=== PATIENT | female | born 1995 | race American Indian/Alaskan Native ===

== ENCOUNTER 2017-10-02 12:23 | Emergency (ER) | payer SELFPAY ==
[2017-10-02 13:00] LABS: Basophils % (Auto) 0.4 % (0.0-1.8); Eosinophils % (Auto) 4.8 % (0.0-4.3); Hematocrit 36.1 % (30.3-42.9); Mean Corpuscular HGB Conc 33 % (30-34); Mean Corpuscular Hemoglobin 29 pg (28-32); Mean Corpuscular Volume 86 fl (79-97); Platelet Count 170 K/mm3 (140-440); Red Blood Count 4.19 M/mm3 (3.65-5.03); Red Cell Distribution Width 13.6 % (13.2-15.2)
[2017-10-02 13:18] LABS: Alanine Aminotransferase 8 units/L (7-56); Albumin 3.8 g/dL (3.9-5); Albumin/Globulin Ratio 1.2 %; Alkaline Phosphatase 38 units/L (35-129); Anion Gap 17 mmol/L; BUN/Creatinine Ratio 15; Blood Urea Nitrogen 6 mg/dL (7-17); Calcium 8.7 mg/dL (8.4-10.2); Carbon Dioxide 22 mmol/L (22-30); Chloride 101.9 mmol/L (98-107); Glucose 93 mg/dL (65-100); Lipase 39 units/L (13-60); Potassium 4.2 mmol/L (3.6-5.0); Sodium 137 mmol/L (137-145); Total Protein 6.9 g/dL (6.3-8.2)
[2017-10-02 13:41] LABS: Mucus,Urine FEW /HPF
[2017-10-02 14:10] LABS: Bilirubin,Urine Negative (Negative); Blood,Urine Small (Negative); Ketones,Urine Negative (Negative)
[2017-10-02 14:11] LABS: Leukocyte Esterase,Urine Negative (Negative); Nitrite,Urine Negative (Negative); Urobilinogen,Urine < 2.0 mg/dL (<2.0)
--- NOTE | 2017-10-02 14:55 | Ultrasound Report ---
OB ultrasound: Pelvic pain. Transabdominal imaging demonstrates that the uterus measures approximately 6.6 x 8.4 x 12 cm. There is a gallegos intrauterine gestation with a BPD of 1.97 cm equivalent to a 13 week one day gestation. The femur length is 7 mm equivalent to a 12 week one day gestation. There is heart motion 154 beats per minute. No intrauterine complication identified. The right ovary measures 3.6 cm and is echogenically unremarkable. The left ovary measures 3.5 cm and contains a 1.8 cm cyst. No free fluid. Impressions: Viable gallegos IUP. No complication identified.
--- NOTE | 2017-10-02 21:51 | Emergency Department Report ---
HPI - General Chief Complaint: Abdominal Pain Time Seen by Provider: 10/02/17 21:40 - HPI HPI: This is a 21 year-old female presents to the emergency department with complaint of some lower abdominal discomfort and some dizziness that occurred earlier today while at work. The patient is and with this she is with 2 previous abortions. She is on vitamins. Her COOKEE is a Dr. Davis and she has an appointment with them on Thursday. She did not take anything for her symptoms prior to presentation. No recent travel or sick contacts at home. She denies any other past medical history. She currently says she is just hungry. She denies any vaginal bleeding, vaginal discharge, fever, nausea, vomiting. ED Past Medical Hx - Past Medical History Previous Medical History?: No - Surgical History Past Surgical History?: No Additional Surgical History: x3 - Social History Smoking Status: Never Smoker Substance Use Type: None ED Review of Systems ROS: Stated complaint: ABDOMINAL PAIN Other details as noted in HPI Comment: All other systems reviewed and negative Constitutional: denies: chills, fever Eyes: denies: eye pain, eye discharge, vision change ENT: denies: ear pain, throat pain Respiratory: denies: cough, shortness of breath, wheezing Cardiovascular: denies: chest pain, palpitations Gastrointestinal: abdominal pain. denies: nausea, diarrhea Genitourinary: denies: urgency, dysuria, discharge Musculoskeletal: denies: back pain, joint swelling, arthralgia Skin: denies: rash, lesions Neurological: other (dizzy). denies: headache, weakness, paresthesias Physical Exam - Physical Exam Vital Signs: Vital Signs 10/02/17 12:36 Temperature 98.4 F Pulse Rate 85 Respiratory 18 Rate Blood Pressure 102/63 O2 Sat by Pulse 100 Oximetry Physical Exam: GENERAL: The patient is well-developed well-nourished. HENT: Normocephalic. Atraumatic. Patient has moist mucous membranes. EYES: Extraocular motions are intact. Pupils equal reactive to light bilaterally. NECK: Supple. Trachea is midline. CHEST/LUNGS: Clear to auscultation. There is no respiratory distress noted. HEART/CARDIOVASCULAR: Regular. There is no tachycardia. There is no gallop rub or murmur. ABDOMEN: Abdomen is soft, nontender. Patient has normal bowel sounds. There is no abdominal distention. SKIN: Skin is warm and dry. NEURO: The patient is awake, alert, and oriented. The patient is cooperative. The patient has no focal neurologic deficits. The patient has normal speech. MUSCULOSKELETAL: There is no tenderness or deformity. There is no limitation range of motion. There is no evidence of acute injury. ED Course Vital Signs 10/02/17 12:36 Temperature 98.4 F Pulse Rate 85 Respiratory 18 Rate Blood Pressure 102/63 O2 Sat by Pulse 100 Oximetry ED Medical Decision Making - Lab Data Result diagrams: 10/02/17 12:43 10/02/17 12:43 - Radiology Data Radiology results: report reviewed OB ultrasound: Pelvic pain. Transabdominal imaging demonstrates that the uterus measures approximately 6.6 x 8.4 x 12 cm. There is a gallegos intrauterine gestation with a BPD of 1.97 cm equivalent to a 13 week one day gestation. The femur length is 7 mm equivalent to a 12 week one day gestation. There is heart motion 154 beats per minute. No intrauterine complication identified. The right ovary measures 3.6 cm and is echogenically unremarkable. The left ovary measures 3.5 cm and contains a 1.8 cm cyst. No free fluid. Impressions: Viable gallegos IUP. No complication identified. Transcribed By: [facility] Dictated By: MARYANN SANCHEZ MD Electronically Authenticated By: MARYANN SANCHEZ MD Signed Date/Time: 10/02/17 9397 - Medical Decision Making 21-year-old patient presents with lower abdominal pain and some dizziness. The patient had been in the emergency department for about 9 hours and at this point she says she is just hungry and denies any significant abdominal pain and the dizziness has since resolved. She does not have any focal, motor or sensory deficits in her cranial nerves appear intact. Obstetric ultrasound shows a live intrauterine at about 13 weeks. Labs are otherwise mostly unremarkable including no signs of any systemic or urinary tract infection, electrolyte abnormalities, renal sufficiency or glucose abnormalities. Her vital signs and stable throughout her ED course. She has an appointment for follow-up with her [employer] on Thursday. She does not have any vaginal bleeding. She appears safe for discharge home at this time. She was given discharge instructions while in the emergency department and all of her questions have been answered. - Differential Diagnosis , threatened miscarriage, spontaneous miscarriage, fibroids, UTI Critical Care Time: No Critical care attestation.: If time is entered above; I have spent that time in minutes in the direct care of this critically ill patient, excluding procedure time. ED Disposition Clinical Impression: Dizziness Qualifiers: Weeks of gestation: 13 weeks Qualified Code(s): Z3A.13 - 13 weeks gestation of Disposition: DC-01 TO HOME OR SELFCARE Is pt being admited?: No Condition: Stable Instructions: (ED), Lightheadedness (ED), Dizziness (ED) Additional Instructions: Please follow-up with your [employer] on Thursday as previously scheduled. Return to the emergency Department sooner with any development of vaginal bleeding, worsening of your abdominal pain, or any acute distress. Continue with your vitamins. He can take Tylenol every 4 hours, using weight-based dosing , as needed for discomfort. Otherwise do not take any medications that are not prescribed by a physician. Referrals: PRIMARY CAREMD [Primary Care Provider] - 3-5 Days Time of Disposition: 21:51
[2017-10-02 22:05] VITALS: BP 112/70
== END 2017-10-02 22:23 | disposition home or self-care (01) ==
LOC: ED 12:23
DX: O26.891 Other specified pregnancy related conditions, first trimester (principal); R42 Dizziness and giddiness; Z3A.13 13 weeks gestation of pregnancy
CPT/HCPCS: 36415; 76801; 80053; 81001; 83690; 84702; 85025; 86900; 86901

== ENCOUNTER 2017-11-20 10:11 | Outpatient (CLI) | payer MEDICAID ==
--- NOTE | 2017-11-21 09:30 | Ultrasound Report ---
History: Findings: Gestation: Single Position: Breech Placenta: Posterior Placental Grade: 0 Heart Rate: 139 BPM Cervical length: 3.2 cm (Normal > 3 cm) It is too early for a anatomical survey NEUROANATOMY VISUALIZED: Normal Choroid Plexus Cisterna Magnum Cerebellum Lateral Ventricle ANATOMY VISUALIZED: Normal Stomach Kidneys Bladder Diaphragm 4 Chamber Heart Heart 3 Vessel Cord Abd. Cord Insert SPINE VISUALIZED: Normal Longitudinal Transverse BPD: 4.4 cm = 19 w 2 d HC: 16.3 cm = 19 w one d AC: 14.2 cm = 19 w 4 d FL: 2.9 cm = 90 w 6 d HC/AC Ratio: 1.1 Cephalic Index: 81.9 Estimated Weight: 281 grams LMP: 07/08/17 Clinical age = 19 w 2 d EDC: 04/14/18 US Gest. Age = 19 w 2 d EDC: 04/14/18
--- NOTE | 2017-11-24 07:29 | Ultrasound Report ---
ULTRASOUND OB TRANSVAGINAL History: Dating, anatomy, well being. Findings: 3 transvaginal ultrasound images were obtained of the cervix. The cervix is closed and measures 3.5 cm in length. No abnormality is noted. Impression: The cervix is closed and measures 3.5 cm.
== END 2017-11-20 10:12 | disposition home or self-care (01) ==
LOC: US 10:11
PROVIDERS: ATTEND Internal Medicine
DX: O32.1XX0 Maternal care for breech presentation, not applicable or unspecified (principal); Z3A.19 19 weeks gestation of pregnancy
CPT/HCPCS: 76805; 76817

== ENCOUNTER 2018-03-27 14:00 | Outpatient (CLI) | payer MEDICAID ==
[2018-03-27 15:44] LABS: Bilirubin,Urine NEG (Negative); Blood,Urine NEG (Negative); Color,Urine Yellow (Yellow); Mucus,Urine FEW /HPF; Protein,Urine <15 mg/dL mg/dL (Negative); Urobilinogen,Urine < 2.0 mg/dL (<2.0)
[2018-03-27] MEDS ORDERED: VISTARIL PO PRN (17:22)
== END 2018-03-27 18:10 | disposition home or self-care (01) ==
LOC: TRG 14:00
PROVIDERS: ATTEND Obstetrics & Gynecology
DX: O47.1 False labor at or after 37 completed weeks of gestation (principal); Z3A.37 37 weeks gestation of pregnancy
CPT/HCPCS: 59025; 81001; Q0177